=== PATIENT | male | born 1950 | race African-American/Black ===

== ENCOUNTER 2018-01-30 10:02 | Emergency (ER) | payer OTHER ==
[~2018-01-30] VITALS: Ht 185.4 cm; Wt 111.1 kg
[2018-01-30 10:06] VITALS: BP 140/80
--- NOTE | 2018-01-30 10:12 | Emergency Room Report ---
History of Present Illness General Chief Complaint: Multiple Trauma/Fall Source: Patient Present Illness HPI Patient presents [place] Patient reports that he did not see the curb and tripped falling forward Hit the left side of his face also broke his fall with the right elbow and left hand Denies any lapse of consciousness denies any chest pain or short of breath Denies any vomiting Most of the pain is localized to her right elbow 4 out of 10 worse with movement Denies any focal weakness denies any back pain Allergies: Coded Allergies: No Known Allergies (Unverified , 01/30/18) Patient History Past Medical History: see triage record Pertinent Family History: none Reviewed Nursing Documentation: PMH: Agreed; PSxH: Agreed Nursing Documentation-PMH Past Medical History: No History, Except For Hx Hypertension: Yes Review of Systems All Other Systems: negative except mentioned in HPI Physical Exam Vital Signs Date Time Temp Pulse Resp B/P (MAP) Pulse Ox O2 Delivery O2 Flow Rate FiO2 01/30/18 10:00 99.2 70 20 140/80 98 Room Air 99.1 Sp02 EP Interpretation: reviewed, normal General Appearance: well appearing Head: other - Superficial laceration quarter centimeter left upper eyelid ENT: hearing grossly normal, normal pharynx, no angioedema Neck: full range of motion, supple Respiratory: lungs clear Cardiovascular #1: regular rate, rhythm, no edema Gastrointestinal: non tender, soft Musculoskeletal: other - Swelling noted to the right elbow, tender to touch however able to have extension flexion equal veterinary attendant bilaterally Neurologic: alert, oriented x3, responsive Skin: other - As above Lymphatic: no adenopathy Procedures Laceration/Wound Repair Laceration/Wound Repair : Consent: Verbal Wound Location: face Wound's Depth, Shape: superficial Wound Explored: clean Wound Debrided: minimal Wound Repaired With: Dermabond Patient Tolerated: Well Complications: None Medical Decision Making Diagnostic Impression: Primary Impression: Laceration Additional Impression: Contusion ER Course Given the patient's history and presentation laceration repair was made for the left upper eyelid Patient does not meet criteria for imaging of the brain The x-ray of the right elbow shows chronic findings but no obvious acute fracture Patient was discussed with possible splint versus shoulder sling however he reports that he feels well And is discharged for close follow-up Other X-Ray Diagnostic Results Other X-Ray Diagnostic Results #1: X-Ray ordered: right humerus # of Views/Limited Vs Complete: 3 View Indication: Pain EP Interpretation: Yes Interpretation: no dislocation, no fractures, other - Mild soft tissue swelling Impression: No acute disease Electronically Signed by: Troy Colbert DO Other X-Ray Diagnostic Results #2: X-Ray ordered: Right elbow # of Views/Limited Vs Complete: 3 View Indication: Pain EP Interpretation: Yes Interpretation: no dislocation, no fractures, other - Bone spur/fragment, no obvious fracture, mild soft tissue swelling Impression: Other - Soft tissue swelling Electronically Signed by: Troy Colbert DO Last Vital Signs Date Time Temp Pulse Resp B/P (MAP) Pulse Ox O2 Delivery O2 Flow Rate FiO2 01/30/18 10:06 99.1 70 20 140/80 98 Room Air 99.1 Status: improved Disposition: HOME, SELF-CARE Condition: Improved Scripts Ibuprofen* (MOTRIN*) 600 Mg Tablet 600 MG ORAL Q8H PRN for For Pain, #20 TAB 0 Refills Prov: Troy Colbert DO 01/30/18 Additional Instructions: Patient is provided with the discharge instructions notified to follow up with primary doctor in the next 2-3 days otherwise return to the er with any worsening symptoms. Please note that this report is being documented using [employer] technology. This can lead to erroneous entry secondary to incorrect interpretation by the dictating instrument. Troy Colbert DO Jan 30, 2018 10:12
[2018-01-30] MEDS ORDERED: IBUPROFEN600 MG ORAL (10:50)
--- NOTE | 2018-01-30 11:44 | Diagnostic Imaging Report ---
EXAM: XR Right Elbow Complete, 3 or More Views CLINICAL HISTORY: TRAUMA TECHNIQUE: Frontal, lateral and oblique views of the right elbow. COMPARISON: No relevant prior studies available. FINDINGS: Bones/joints: No acute fracture. No dislocation. Degenerative changes of the right elbow including olecranon spur. Soft tissues: No radiopaque foreign body. Heterotopic ossification posterior to the distal right humerus. IMPRESSION: No fracture or dislocation
--- NOTE | 2018-01-30 11:45 | Diagnostic Imaging Report ---
EXAM: XR Right Humerus, 2 or More Views CLINICAL HISTORY: TRAUMA TECHNIQUE: Frontal and lateral views of the right humerus. COMPARISON: No relevant prior studies available. FINDINGS: Bones/joints: No acute fracture. No dislocation. Degenerative changes of the right elbow including olecranon spur. Degeneration of the right acromioclavicular joint. Soft tissues: No radiopaque foreign body. Heterotopic ossification posterior to the distal right humerus. IMPRESSION: No fracture or dislocation
[2018-01-30 11:48] VITALS: BP 140/80
== END 2018-01-30 11:50 | disposition home or self-care (01) ==
LOC: EDBD 10:02 → EMR 10:21
DX: S01.112A Laceration without foreign body of left eyelid and periocular area, initial encounter (principal); S50.01XA Contusion of right elbow, initial encounter; W01.198A Fall on same level from slipping, tripping and stumbling with subsequent striking against other object, initial encounter; Y93.01 Activity, walking, marching and hiking; Y92.488 Other paved roadways as the place of occurrence of the external cause; Y99.9 Unspecified external cause status; I10 Essential (primary) hypertension
CPT/HCPCS: 99284